=== PATIENT | female | born 1955 | race Caucasian/White ===

== ENCOUNTER → 2016-10-28 | Outpatient (CLI) | payer BC | LOC: GMAB 10:57 | PROVIDERS: ATTEND Family Medicine | DX: Z00.01 Encounter for general adult medical examination with abnormal findings (principal) ==

== ENCOUNTER → 2017-12-29 | Outpatient (CLI) | payer BC | LOC: GMAB 10:30 | PROVIDERS: ATTEND Family Medicine | DX: I10 Essential (primary) hypertension (principal) ==

== ENCOUNTER 2019-09-16 11:44 | Emergency (ER) | payer BC ==
[2019-09-16] MEDS ORDERED: ACETAMINOPHEN 500 MG TAB PO ONE (12:02)
--- NOTE | 2019-09-16 12:06 | ED.PDOC ---
History of Present Illness - General Chief Complaint: General Stated Complaint: all over body aches, low grade fever Time Seen by Provider: 09/16/19 12:02 - History of Present Illness Initial Comments: Patient is a 64 year old with PMH significant for CAD, CHF, HLD and depression. She presents complaining of generalized body aches. States that she woke this morning around 0230 with "every joint in my body hurting." She denies cough, chest pain, shortness of breath, abdominal pain. She has been running low-grade fever, 100.3. She took advil x 2 this morning with minimal relief. She did not get a flu shot this year. No recent travel or known sick contacts. No other complaints at this time. Allergies/Adverse Reactions: Allergies NO KNOWN ALLERGY Allergy (Verified 07/30/15 17:28) Home Medications: Ambulatory Orders Aspirin [Aspirin Adult Low Dose] 81 mg PO DAILY 07/30/15 Ibuprofen [Advil] 200 mg PO QID 07/30/15 Multiple Vitamin [Multi Vitamin Daily] 1 tab PO DAILY 07/30/15 Simvastatin [Zocor] 40 mg PO DAILY 07/30/15 Venlafaxine HCl [Effexor Tab] 50 mg PO DAILY 07/30/15 Venlafaxine HCl [Effexor Tab] 75 mg PO DAILY 07/30/15 Review of Systems - Review of Systems Constitutional: States: chills, fever, malaise EENTM: States: no symptoms reported. Denies: nose congestion, throat pain Respiratory: Denies: cough, short of breath Cardiology: Denies: chest pain, palpitations Gastrointestinal/Abdominal: Denies: abdominal pain, diarrhea, nausea, vomiting Genitourinary: States: no symptoms reported Musculoskeletal: States: muscle pain Skin: Denies: rash Neurological: Denies: numbness, paresthesia, weakness Endocrine: States: no symptoms reported Hematologic/Lymphatic: States: no symptoms reported All other Systems: Reviewed and Negative Past Medical History (General) - Patient Medical History Hx Cardiac Disorders: Yes Hx Congestive Heart Failure: No Hx Hypertension: No Hx Diabetes: No Hx Gastroesophageal Reflux: No - Vaccination History Hx Tetanus, Diphtheria Vaccination: Yes Hx Influenza Vaccination: Yes Hx Pneumococcal Vaccination: No - Social History Hx Tobacco Use: No Family Medical History - Family History Mother Family History: Unknown Physical Exam - Physical Exam General Appearance: Alert, Comfortable, No apparent distress, Well Developed, Well Groomed Ears, Nose, Throat: hearing grossly normal, normal ENT inspection, normal pharynx Neck: non-tender, full range of motion, supple, normal inspection Respiratory: lungs clear, normal breath sounds, no respiratory distress, no accessory muscle use Cardiovascular/Chest: regular rate, rhythm Gastrointestinal/Abdominal: non tender, soft Neurologic: no motor/sensory deficits, alert, oriented x 3 Skin Exam: cyanosis - perioral cyanosis and cyanosis of the extremities appreciated, patient states residual from PDA repair Progress - Progress Progress: 09/16/19 13:14 Laboratory Results - last 24 hr 09/16/19 09/16/19 12:29 12:29 WBC 9.0 RBC 5.08 Hgb 12.6 Hct 39.7 MCV 78.1 L MCH 24.9 L MCHC 31.8 L RDW 18.3 H Plt Count 508 H MPV 8.9 Absolute Neuts (auto) 6.90 H Absolute Lymphs (auto) 0.90 L Absolute Monos (auto) 1.00 H Absolute Eos (auto) 0.10 Absolute Basos (auto) 0.10 Neutrophils % 76.2 Lymphocytes % 10.3 L Monocytes % 11.5 H Eosinophils % 1.3 Basophils % 0.7 Sodium 135 Potassium 3.4 L Chloride 96 L Carbon Dioxide 25 Anion Gap 17.4 BUN 9 Creatinine 0.74 BUN/Creatinine Ratio 12.2 Random Glucose 102 Serum Osmolality 269.0 L Calcium 9.4 Microbiology 09/16/19 12:41 Influenza Types A,B Antigen - Final Nasal/Nasopharyngeal Swab negative Patient reassessed, workup as above. Feels well. Suspect viral syndrome. Will continue outpatient symptomatic management with tylenol/motrin and she will follow up with her PCP as an outpatient. Home care instructions and return indications reviewed. 09/16/19 16:53 MDM: Patient presents with fever, generalized body aches suspicious for flu, workup as above is negative. No signs/symptoms of SBI. Will continue outpatient symptomatic management, tylenol/motrin for pain. Home care instructions and return indications reviewed. - Results/Orders Results/Orders: Laboratory Results - last 24 hr 09/16/19 09/16/19 12:29 12:29 WBC 9.0 RBC 5.08 Hgb 12.6 Hct 39.7 MCV 78.1 L MCH 24.9 L MCHC 31.8 L RDW 18.3 H Plt Count 508 H MPV 8.9 Absolute Neuts (auto) 6.90 H Absolute Lymphs (auto) 0.90 L Absolute Monos (auto) 1.00 H Absolute Eos (auto) 0.10 Absolute Basos (auto) 0.10 Neutrophils % 76.2 Lymphocytes % 10.3 L Monocytes % 11.5 H Eosinophils % 1.3 Basophils % 0.7 Sodium 135 Potassium 3.4 L Chloride 96 L Carbon Dioxide 25 Anion Gap 17.4 BUN 9 Creatinine 0.74 BUN/Creatinine Ratio 12.2 Random Glucose 102 Serum Osmolality 269.0 L Calcium 9.4 Departure - Departure Clinical Impression: Generalized body aches Fever Qualifiers: Fever type: unspecified Qualified Code(s): R50.9 - Fever, unspecified Time of Disposition: 13:16 Disposition: Discharge to Home or Self Care Condition: Excellent Departure Forms: ED Discharge - Pt. Copy, Patient Portal Self Enrollment Instructions: DI for Fever (Symptom) -- Adult, Flu, Adult (DC) Diet: resume usual diet Activity: increase activity as tolerated Referrals: Jesus Camejo MD [Primary Care Provider] - 1-2 Weeks Home Medications: Ambulatory Orders Aspirin [Aspirin Adult Low Dose] 81 mg PO DAILY 07/30/15 Ibuprofen [Advil] 200 mg PO QID 07/30/15 Multiple Vitamin [Multi Vitamin Daily] 1 tab PO DAILY 07/30/15 Simvastatin [Zocor] 40 mg PO DAILY 07/30/15 Venlafaxine HCl [Effexor Tab] 50 mg PO DAILY 07/30/15 Venlafaxine HCl [Effexor Tab] 75 mg PO DAILY 07/30/15 Additional Instructions: Alternate tylenol and motrin for fever and body aches. Return with any persistent, new or worsening symptoms. Comments: Terry Davila MD Emergency Medicine Physician Number [id number]
[2019-09-16 13:33] VITALS: BP 105/84; TEMP 99.3; O2SAT 93
== END 2019-09-16 13:24 | disposition home or self-care (01) ==
LOC: ER 11:44
DX: R50.9 Fever, unspecified (principal); M79.10 Myalgia, unspecified site; I25.10 Atherosclerotic heart disease of native coronary artery without angina pectoris; I50.9 Heart failure, unspecified; E78.00 Pure hypercholesterolemia, unspecified; F32.9 Major depressive disorder, single episode, unspecified; Z79.82 Long term (current) use of aspirin